=== PATIENT | female | born 1970 | race Caucasian/White ===

== ENCOUNTER 2016-07-25 18:56 | Emergency (ER) | payer MEDICARE ==
[2016-03-07 12:47] VITALS: BMI 31.7
[~2016-07-25 18:56] MED LIST: ACETAMINOPHEN500 M1 PO; BACTRIM DS TABL1 TAB PO; CARAFATE1 G PO; CHROMAGEN CAPLE1 TAB PO; EFFEXOR XR75 MG PO; EFFEXOR75 MG PO; HYDROCODON-ACE1 EAC7 PO; HYDROCODONE-APA1 TAB PO; LEVAQUIN500 MG PO; NEXIUM40 MG PO; PERCOCET 10/3251 TA1 PO; PRILOSEC10 MG PO; VALIUM10 MG PO; ZESTRIL40 MG PO
[2016-07-25 20:07] LABS: APPEARANCE CLEAR (CLEAR); COLOR YELLOW (YELLOW)
[2016-07-25 20:08] LABS: BILIRUBIN NEGATIVE (NEGATIVE); GLUCOSE NEGATIVE (NEGATIVE); KETONE NEGATIVE (NEGATIVE); LEUKOCYTE ESTERASE NEGATIVE (NEGATIVE); NITRITE NEGATIVE (NEGATIVE); PROTEIN NEGATIVE (NEGATIVE); UROBILINOGEN NORMAL (NORMAL)
[2016-07-25 20:38] LABS: BASOPHILS 0.3 % (0-2); HEMATOCRIT 44.5 % (36.0-48.0); HEMOGLOBIN 15.1 g/dL (12-16); IMMATURE GRANULOCYTES 0.1 % (0-5); LYMPHOCYTES 24.8 % (15-50); MCH 31.7 pg (26.0-34.0); MCHC 33.9 g/dL (31.0-37.0); MCV 93.5 fL (80.0-100.0); MONOCYTES 8.5 % (2-11); NEUTROPHILS 64.3 % (40-80); RBC 4.76 10x6/uL (4.00-5.40); RDW 12.6 % (11.5-14.5); WBC 9.4 10x3/uL (4.8-10.8)
[2016-07-25 20:45] LABS: PLATELET COUNT 345 10x3/uL (130-400)
[2016-07-25 20:57] LABS: ALBUMIN 3.5 g/dL (3.4-5.0); ALKALINE PHOSPHATASE 109 U/L (46-116); ALT (SGPT) 20 U/L (10-68); BILIRUBIN - TOTAL 0.13 mg/dL (0.2-1.3); CALC OSMOLALITY 280 mosm/kg (275-300); CARBON DIOXIDE 25.9 mmol/L (21.0-32.0); CHLORIDE - SERUM 102 mmol/L (98-107); CREATININE - SERUM 0.8 mg/dL (0.6-1.3); GLUCOSE 95 mg/dL (74-106); SODIUM 137 mmol/L (136-145); UREA NITROGEN 32 mg/dL (7-18); eGFR NON AFRICAN AMERICAN 81 mL/min (90-120)
[2016-07-25 21:07] LABS: AMYLASE - SERUM 125 U/L (25-115); CREATINE KINASE 88 UL (21-215); LIPASE 169 U/L (73-393); PRO BNP 136 pg/mL (0-125)
[2016-07-25 21:11] LABS: TROPONIN-I < 0.017 ng/mL (0.000-0.060)
== END 2016-07-25 23:43 | disposition home or self-care (01) ==
LOC: D.ER 18:56
PROVIDERS: Nurse Practitioner Family
DX: J44.1 Chronic obstructive pulmonary disease with (acute) exacerbation (principal); Z91.14 Patient's other noncompliance with medication regimen; F32.9 Major depressive disorder, single episode, unspecified; K21.9 Gastro-esophageal reflux disease without esophagitis; I10 Essential (primary) hypertension; F17.200 Nicotine dependence, unspecified, uncomplicated